=== PATIENT | male | born 1995 | race African-American/Black ===

== ENCOUNTER 2018-01-23 14:57 | Emergency (ER) | payer MEDICAID ==
[~2018-01-23] VITALS: Ht 190.5 cm; Wt 97.5 kg
[~2018-01-23 14:57] MED LIST: BENADRYL CRE1 APPLIC TOPIC; IBUPROFEN600 MG ORAL; IBUPROFEN600 MG PO; KEFLEX500 MG ORAL; NKM; NO MEDS; NORCO 5-325 TA1 EACH ORAL; VICODIN 5-5001 EACH ORAL
--- NOTE | 2018-01-23 16:17 | Emergency Room Report ---
History of Present Illness General Chief Complaint: Lower Extremity Injury Source: Patient Present Illness HPI Patient is a 22-year-old male presented after increased left ankle pain. Patient had reportedly fallen down stairs. He reports having increased pain to his left foot as well as left ankle. He reportedly inverted his ankle and felt a pop. The patient states that he had been having increased pain with movement. He had not been able to ambulate or bear weight.. Allergies: Uncoded Allergies: GEL CAPSULE (Allergy, Unknown, 01/23/18) Patient History Past Medical History: see triage record Reviewed Nursing Documentation: PMH: Agreed; PSxH: Agreed Nursing Documentation-PM Past Medical History: No Stated History Review of Systems All Other Systems: negative except mentioned in HPI Physical Exam Vital Signs Date Time Temp Pulse Resp B/P (MAP) Pulse Ox O2 Delivery O2 Flow Rate FiO2 01/23/18 15:45 98.3 80 16 104/48 94 Room Air 98.2 General Appearance: well appearing, no apparent distress, alert, GCS 15 Head: normocephalic, atraumatic ENT: hearing grossly normal, normal voice Neck: full range of motion, supple Respiratory: no respiratory distress, speaking full sentences Gastrointestinal: normal inspection, normal bowel sounds, non tender, soft Musculoskeletal: no calf tenderness, decreased range of mation, swelling - swelling, foot and lateral ankle Neurologic: normal inspection, alert, oriented x3, responsive, factory manager III-XII nml as tested, abnormal gait - antalgic Psychiatric: mood/affect normal Skin: no rash Medical Decision Making Diagnostic Impression: Primary Impression: Sprain of ankle Additional Impression: Sprain of foot, left ER Course Patient presented for leg and ankle pain. Differential diagnosis included was not limited to vascular insufficiency, fracture, osteomyelitis, sprain, deep venous thrombosis. X-ray imaging of the ankle was obtained. The x-ray of the left foot had 3 views interpreted by me showed normal bony alignment without evident fracture. X-ray of the left ankle 3 views interpreted by me showed soft tissue swelling without evident fracture. The patient was given appropriate for pain. He is given Johnathan wrap and crutches. Patient is advised follow-up with primary care physician for recheck in 2 days. Last Vital Signs Date Time Temp Pulse Resp B/P (MAP) Pulse Ox O2 Delivery O2 Flow Rate FiO2 01/23/18 15:45 98.3 80 16 104/48 94 Room Air 98.2 Status: improved Disposition: HOME, SELF-CARE Condition: Stable Scripts Ibuprofen* (MOTRIN*) 600 Mg Tablet 600 MG ORAL Q8H PRN for For Pain, #30 TAB 0 Refills Prov: Huy Dixon MD 01/23/18 Huy Dixon MD Jan 23, 2018 16:17
[2018-01-23] MEDS ORDERED: IBUPROFEN600 MG ORAL (17:44)
[2018-01-23 17:59] VITALS: BP 104/48
--- NOTE | 2018-01-24 12:09 | Diagnostic Imaging Report ---
Indication: Foot pain Comparison: None Findings: 3 views of the left foot were obtained. No acute fractures, malalignment, erosions or periostitis are identified. Soft tissues are unremarkable. Impression: No acute findings
--- NOTE | 2018-01-24 12:15 | Diagnostic Imaging Report ---
Indication: left ankle pain Comparison: None Findings: 3 views of the left ankle obtained. No acute fracture, malalignment, periostitis, or osteochondral defects are identified. Soft tissues are unremarkable. Impression: No acute findings
== END 2018-01-23 17:59 | disposition home or self-care (01) ==
LOC: EMR 16:19
DX: S93.402A Sprain of unspecified ligament of left ankle, initial encounter (principal); S93.602A Unspecified sprain of left foot, initial encounter; W10.9XXA Fall (on) (from) unspecified stairs and steps, initial encounter; Y92.9 Unspecified place or not applicable
CPT/HCPCS: 99284

== ENCOUNTER 2020-04-29 21:37 | Emergency (ER) | payer SELFPAY ==
[~2020-04-29] VITALS: Ht 190.5 cm; Wt 86.2 kg
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
--- NOTE | 2020-04-29 22:03 | NUR ---
ED Nurse Note: ERMD at bedside
[2020-04-29 22:04] VITALS: BP 115/70
[2020-04-29] MEDS ORDERED: HYDROcodone/Acetamin 5/325 tab ORAL ONE (22:15)
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
--- NOTE | 2020-04-29 22:30 | NUR ---
ED Nurse Note: SANDY chester at bedside
[2020-04-29 22:34] LABS: APPEARANCE,URINE SLIGHTLY CLOUDY; BILIRUBIN, URINE NEGATIVE (NEGATIVE); GLUCOSE, URINE (UA) NEGATIVE (NEGATIVE); KETONES,URINE 1+ (NEGATIVE); LEUKOCYTE ESTERASE ,URINE 3+ (NEGATIVE); NITRITE,URINE NEGATIVE (NEGATIVE); PH,URINE 7 (4.5-8.0); PROTEIN,URINE 2+ (NEGATIVE); UROBILINOGEN,URINE 4 MG/DL (0.0-1.0)
[2020-04-29 22:36] LABS: COLOR,URINE YELLOW
[2020-04-29] MEDS ORDERED: HYDROmorphone 1mg/ml Carpuject IVP ONE (23:00)
[2020-04-29] MEDS ORDERED: Azithromycin 250mg tab ORAL ONE (23:00)
[2020-04-29] MEDS ORDERED: DOXYCYCLINE MO100 MG ORAL (23:00)
[2020-04-29] MEDS ORDERED: HYDROCODON-ACE1 EA15 ORAL (23:00)
[2020-04-29] MEDS ORDERED: Lidocaine 1% MPF 10mg/ml 5ml INJ ONE (23:00)
--- NOTE | 2020-04-29 23:18 | Diagnostic Imaging Report ---
EXAM: US Scrotum CLINICAL HISTORY: TRAUMA TECHNIQUE: Real-time ultrasound of the scrotum with color Doppler and image documentation. COMPARISON: None. FINDINGS: Right testicle: The right testis measures 4.6 x 2.2 x 3.1 cm. No torsion. Left testicle: The left testis measures 4.4 x 2.6 x 3.1 cm. No torsion. Epididymides: Diffuse increased size of the right epididymis with increased vascularity. Diffuse increased size of the left epididymis with increased vascularity. Scrotum: Minimal right-sided hydrocele. Mild to moderate left-sided hydrocele. IMPRESSION: 1. Moderate hydrocele, left more severe compared to right. 2. Slight increase in size of the bilateral epididymides with increased vascularity, cannot exclude bilateral epididymitis. 3. Remainder of the exam are unremarkable.
[2020-04-29 23:20] VITALS: BP 115/70
--- NOTE | 2020-04-29 23:20 | NUR ---
ER DISCHARGE NOTE: Patient is cleared to be discharged per ERMD, pt is aox4, on room air, with stable vital signs. pt was given dc and prescription instructions, pt was able to verbalize understanding, pt id band removed. pt is able to ambulate with steady gait. pt took all belongings.
== END 2020-04-29 23:22 | disposition home or self-care (01) ==
LOC: EMR 22:05
DX: N45.1 Epididymitis (principal)
CPT/HCPCS: 76870; 81003; 87086; 96372; 96374; 99284; J0696